=== PATIENT | female | born 1990 | race Caucasian/White ===

== ENCOUNTER → 2018-07-21 | Outpatient (CLI) | payer OTHER ==
[~2018-07-21] MED LIST: PREN-127 PO
[2018-07-21 12:00] LABS: PLATELET COUNT, AUTOMATED 235 K/uL (150-450)
== END ==
LOC: LAB 11:41
PROVIDERS: ATTEND Obstetrics & Gynecology
DX: Z34.01 Encounter for supervision of normal first pregnancy, first trimester (principal); R82.79 Other abnormal findings on microbiological examination of urine
CPT/HCPCS: 36415; 81001; 85025; 86592; 86703; 86762; 86850; 86900; 86901; 87088; 87340

== ENCOUNTER → 2018-08-06 | Outpatient (CLI) | payer OTHER ==
[~2018-08-06] MED LIST changes: +AZIT500T44 PO; +FLU60SYR36 IM
== END ==
LOC: LAB 11:58
PROVIDERS: ATTEND Obstetrics & Gynecology
DX: Z11.8 Encounter for screening for other infectious and parasitic diseases (principal); Z11.3 Encounter for screening for infections with a predominantly sexual mode of transmission; A56.8 Sexually transmitted chlamydial infection of other sites
CPT/HCPCS: 87491; 87591

== ENCOUNTER → 2018-09-05 | Outpatient (CLI) | payer OTHER | LOC: LAB 11:55 | PROVIDERS: ATTEND Obstetrics & Gynecology | DX: Z20.2 Contact with and (suspected) exposure to infections with a predominantly sexual mode of transmission (principal) | CPT/HCPCS: 87491; 87591 ==

== ENCOUNTER → 2018-10-09 | Outpatient (CLI) | payer OTHER ==
--- NOTE | 2018-10-09 10:06 | RADIOLOGY IMAGING REPORT ---
FACILITY: [facility] - [place] PATIENT NAME: Juany Huizar : 1990 MR: [id number] V: [id number] EXAM DATE: ORDERING PHYSICIAN: SCOTTY MCCLAIN TECHNOLOGIST: Location: [facility] [place] Patient: Juany Huizar : 1990 Visit/Account:[id number] Date of Sevice: 10/09/2018 EXAMINATION: Ultrasound transabdominal OB > 14 weeks with anatomic evaluation HISTORY: 20 week anatomical survey COMPARISON: None. TECHNIQUE: Transabdominal imaging was performed for assessment of the fetus and maternal pelvic structures. T ransvaginal imaging was not performed. FINDINGS: Placenta: Anterior and fundal without previa. Uterus: Gravid, otherwise normal Cervix: Long and closed. Maternal Ovaries: Not visualized. Maternal and other adnexa findings: There is a 3.7 x 2 x 3.4 cm anterior hypoechoic mass along the mi d body the uterus which may represent a fibroid Intrauterine gestations: One. presentation: Breech heart rate: Normal and regular at 138 bpm Amniotic fluid index: 15.26 cm Largest amniotic fluid pocket: 4.6 cm Gestational Parameters: BPD: 4.43 cm 19 weeks/ tree days, 25% HC: 17.42 cm 20 weeks/ zero days, 40% AC: 14.45 cm 19 weeks/ six days, 37% FL: 3.23 cm 20 weeks/ one days, 45% Average ultrasound age (AUA): 19 weeks/six days, AQUILINO 02/27/2019 Estimated gestational age by AQUILINO: 20 weeks/zero days, AQUILINO 02/26/2019 Estimated weight (EFW): 320 grams +/- 47 grams EFW for AQUILINO: 39 percentile Anatomic Survey: Intracranial structures, 4-chamber heart, stomach, kidneys, urinary bladder, spine, 3-vessel cord and cord insertion are unremarkable. Two upper and two lower extremities visualized. Cardiac ventricula r outflow tracts, palate and lips are unremarkable in appearance. IMPRESSION: Single viable fetus in breech presentation with an estimated gestational age by measurem ents of 19 weeks and six days. Estimated gestational age by LMP is 20 weeks and zero days. Estimated weight is 320 g equivalent to the 39th percentile. 3.7 x 2 x 3.4 cm anterior hypoechoic mass along the mid body the uterus may represent a fibroid Report Dictated By: Claudia Finnegan MD at 10/09/2018 9:55 AM Report E-Signed By: Claudia Finnegan MD at 10/09/2018 10:01 AM WSN:[email or web address]
== END ==
LOC: RAD 07:41
PROVIDERS: ATTEND Obstetrics & Gynecology
DX: Z02.9 Encounter for administrative examinations, unspecified (principal)

== ENCOUNTER → 2018-11-27 | Outpatient (CLI) | payer OTHER ==
[~2018-11-27] MED LIST changes: +DIPH0.5S2 IM; +RHO(150015 IM
[2018-11-27 12:26] LABS: PLATELET COUNT, AUTOMATED 209 K/uL (150-450)
== END ==
LOC: LAB 11:11
PROVIDERS: ATTEND Advanced Practice Midwife
DX: Z34.92 Encounter for supervision of normal pregnancy, unspecified, second trimester (principal)
CPT/HCPCS: 36415; 82040; 82247; 82310; 82374; 82435; 82565; 82947; 82950; 84075; 84132; 84155; 84295; 84450; 84460; 84520; 85025

== ENCOUNTER → 2018-12-02 | Outpatient (CLI) | payer OTHER | LOC: LAB 08:41 | PROVIDERS: ATTEND Obstetrics & Gynecology | DX: O99.810 Abnormal glucose complicating pregnancy (principal) | CPT/HCPCS: 36415; 82951; 82952 ==

== ENCOUNTER → 2019-01-28 | Outpatient (CLI) | payer OTHER | LOC: LAB 09:11 | PROVIDERS: ATTEND Advanced Practice Midwife | DX: Z36.85 Encounter for antenatal screening for Streptococcus B (principal) | CPT/HCPCS: 87081 ==

== ENCOUNTER → 2019-02-11 | Outpatient (CLI) | payer OTHER | LOC: LAB 09:44 | PROVIDERS: ATTEND Obstetrics & Gynecology | DX: Z11.8 Encounter for screening for other infectious and parasitic diseases (principal); Z11.3 Encounter for screening for infections with a predominantly sexual mode of transmission | CPT/HCPCS: 87491; 87591 ==